=== PATIENT | male | born 1985 | race Caucasian/White ===

== ENCOUNTER 2024-07-20 15:39 | Outpatient (CLI) | payer OTHER, SELFPAY ==
--- NOTE | 2024-07-20 15:45 | CRLHL7_ITS ---
For Patients: As a result of the Century Cures Act, medical imaging exams and procedure reports are released immediately into your electronic medical record. You may view this report before your referring provider. If you have questions, please contact your health care provider. CLINICAL HISTORY: Recent vasectomy question hydrocele. TECHNIQUE: Giron scale imaging was performed of the scrotum. In addition color Doppler and spectral Doppler analysis was performed of the testes. FINDINGS: The right testis measures 4.3 x 2.3 x 3.5 centimeters in size and the left testis measures 4.3 x 2.7 x 3.1 centimeters . Normal blood flow to both testes no intratesticular mass. The epididymis appears normal bilaterally. Complex 2.7 x 0.9 x 2.1 centimeter extratesticular hypoechoic collection superior lateral to the left testes given clinical history probably reflects a hematoma. It appears avascular. Small left hydrocele mild left varicocele. IMPRESSION: 1. No intratesticular mass normal blood flow to both testes. 2. Small complex collection measuring 2.7 x 0.9 x 2.1 centimeters superior lateral to the left testis probably reflects a small hematoma. Recommend follow-up and clinical correlation. 3. Small left hydrocele mild left varicocele Dictated by Roz Swan MD @ 07/23/2024 5:53:02 AM (Electronically Signed)
== END 2024-07-20 15:40 | disposition home or self-care (01) ==
PROVIDERS: PCP Family Medicine; Visit Provider Urology
DX: N43.3 Hydrocele, unspecified (principal); I86.1 Scrotal varices
CPT/HCPCS: 76870; 93976